=== PATIENT | female | born 1985 | race Two or more races ===

== ENCOUNTER 2017-01-14 03:40 | Emergency (ER) | payer SELFPAY ==
[~2017-01-14] VITALS: Ht 170.2 cm; Wt 53.1 kg
--- NOTE | 2017-01-14 04:19 | NUR ---
PT TO ER BED 3 PT C/O LEFT SIDED STABBING CHEST PAIN SINCE AM, ADMITS TO USING OF HEROIN YESTERDAY. PT AO TO NAME. RR EVEN AND UNLABORED. NO SOB NOTED. NAD NOTED. NO NVD AT THIS TIME. PT NOT DIAPHORETIC. PT GOWNED AND PLACED ON MONITOR.
[2017-01-14] MEDS ORDERED: IV NS 0.9% 500 ML IV ONE (04:24)
[2017-01-14] MEDS ORDERED: ONDANSETRON HCL/PF 4 MG/2 ML VIAL ONE (04:24)
[2017-01-14] MEDS ORDERED: IV SET PRIMARY 1 EA INFUS.SET MC ONE (04:24)
[2017-01-14] MEDS ORDERED: ACETAMINOPHEN ES 500 MG TABLET ONE (04:24)
--- NOTE | 2017-01-14 04:25 | NUR ---
DR. LUCIO AT BEDSIDE FOR EVAL.
[2017-01-14] MEDS ORDERED: ACETAMINOPHEN 325 MG TABLET PO ONE (04:30)
[2017-01-14] MEDS ORDERED: ONDANSETRON HCL/PF 4 MG/2 ML VIAL IVP ONE (04:30)
[2017-01-14] MEDS ORDERED: IV NS 0.9% 500 ML BAG IV ONE (04:30)
--- NOTE | 2017-01-14 04:30 | NUR ---
STARTED A SALINE LOCK ON THE RIGHT AC G18, BLOOD DRAWN AND SENT TO LAB.
--- NOTE | 2017-01-14 04:47 | NUR ---
XRAY AT BEDSIDE
[2017-01-14 04:52] LABS: HEMATOCRIT 39 % (33-45); HEMOGLOBIN 12.9 g/dL (11.5-14.8); LYMPHOCYTES # (AUTO) 0.3 /CMM (0.8-4.8); LYMPHOCYTES % (AUTO) 4.1 % (20.0-44.0); MEAN CORPUSCULAR HEMOGLOBIN 29 PG (26.0-33.0); MEAN CORPUSCULAR HGB CONC 33 g/dl (31.0-36.0); MEAN CORPUSCULAR VOLUME 87 fL (82-100); MONOCYTES % (AUTO) 0.4 % (2.0-12.0); NEUTROPHILS # (AUTO) 6.5 /CMM (1.8-8.9); NEUTROPHILS % (AUTO) 95.5 % (43.0-81.0); PLATELET COUNT (AUTO) 175 /CMM (150-450); RDW COEFFICIENT OF VARIATION 14.4 (11.5-15.0); RED BLOOD CELL COUNT(AUTO) 4.42 MIL/uL (4.0-5.2); WHITE BLOOD COUNT (AUTO) 6.8 K/uL (4.3-11.0)
--- NOTE | 2017-01-14 05:04 | NUR ---
PT UNABLE TO PROVIDE URINE AT THIS TIME. DR. KHADIJAH CODY.
[2017-01-14 05:05] LABS: CALCIUM, SERUM 8.8 mg/dL (8.5-10.1); CARBON DIOXIDE 31 mmol/L (21-32); CHLORIDE 108 mmol/L (98-107); CREATININE 0.9 mg/dL (0.6-1.3); GLUCOSE 86 mg/dL (74-106); POTASSIUM 3.2 mmol/L (3.5-5.1); SODIUM SERUM 145 mmol/L (136-145); UREA NITROGEN, BLOOD 9 mg/dL (7-18)
[2017-01-14 05:09] LABS: INR 0.99 (0.87-1.13); PROTHROMBIN TIME 10.6 SECS (9.5-12.7)
[2017-01-14 05:10] LABS: ALANINE AMINOTRANSFERASE 50 U/L (12-78); ALBUMIN 3.4 g/dL (3.4-5.0); ALKALINE PHOSPHATASE 117 U/L (46-116); ASPARTATE AMINOTRANSFERASE 64 U/L (15-37); BILIRUBIN,DIRECT 0.3 mg/dL (0.0-0.2); BILIRUBIN,TOTAL 0.7 mg/dL (0.2-1.0); TOTAL PROTEIN, SERUM 7.9 g/dL (6.4-8.2)
[2017-01-14 05:12] LABS: TROPONIN I < 0.017 ng/mL (0.00-0.056)
--- NOTE | 2017-01-14 05:14 | NUR ---
IV removed. Catheter intact and site benign. Pressure and 4x4 applied to site. No bleeding noted.
--- NOTE | 2017-01-14 05:15 | NUR ---
Patient does not wish to proceed with medical care recommended by Dr. Zurita). Patient given information related to possible complications, up to and including , which could occur as a result of leaving the hospital at this time. Patient verbalizes understanding of risks involved due to leaving against medical advice. Patient has signed AMA form. pt [id number] no acute distress noted, resp even and unlabored.
[2017-01-14 05:17] VITALS: BP 163/100
[2017-01-14 05:26] LABS: BAND % (MANUAL) 49 % (0.0-5.0); LYMPHOCYTES % (MANUAL) 3 % (16-48); MONOCYTES % (MANUAL) 2 % (0-11.0); NEUTROPHILS % (MANUAL) 46 (42-76)
== END 2017-01-14 05:19 | disposition left against medical advice (07) ==
LOC: ER 03:47
DX: R07.89 Other chest pain (principal); F11.10 Opioid abuse, uncomplicated; R50.9 Fever, unspecified
CPT/HCPCS: 36415; 71010; 80048; 80076; 83605; 84484; 85025; 85730; 87040 ×2; 93005; 96374; 99285; A4606; J2405; J7040; Z7610